=== PATIENT | female | born 1955 | race Caucasian/White ===

== ENCOUNTER → 2020-06-07 | Outpatient (CLI) | payer OTHER ==
[2015-08-15 15:03] VITALS: BP 142/88
--- NOTE | 2020-06-07 16:01 | KCIC ---
MRI Lumbar Spine without contrast History: Left lumbar radiculopathy, left foot drop Technique: Multiplanar, multi sequential noncontrast MR imaging was performed of the lumbar spine. Comparison: None Findings: There is motion degradation. Lumbar vertebral body stature is maintained. AP alignment is within normal limits. Conus terminates near the superior aspect of L2. There is a focus of heterogeneous signal change of the left anterior L5 vertebral body, somewhat hyperintense on the T2 and STIR sequences, measuring about 2.8 cm CC by 1.7 cm AP by about 1.9 cm transverse. This is of somewhat mixed signal characteristics on the T1 sequence, some degree of T1 hypointense signal. There is very mild L4-5 degenerative disc disease, mild disc desiccation at the levels. There is anterior annular tear L4-5. T12-L1: Spinal canal and neural foramina are adequate. L1-L2: Neural foramina and spinal canal are adequate. L2-L3: There is negligible bulge, minimal indentation upon the ventral thecal sac without significant spinal stenosis. Neural foramina are overall adequate. L3-L4: There is mild facet degenerative change. Spinal canal and neural foramina are adequate. L4-L5: There is minimal bulge. There is mild buckling of the ligamentum flavum. There is mild narrowing of the far lateral recesses bilaterally. There is very mild inferior neural foramina compromise bilaterally by minimal disc osteophyte complex. L5-S1: There is mild facet hypertrophic change. There is very mild narrowing at the far left lateral lateral recess from posteriorly by facet. There is minimal narrowing of the left neural foramen by disc osteophyte complex, right neural foramen adequate. Impression: 1. There is mild narrowing of the far lateral recesses bilaterally at L4-5 and to lesser degree on the left at L5-S1 as described. There is mild neural foramina compromise on the left at L5-S1 and bilaterally at L4-5. 2. There is a focus of nonspecific marrow signal abnormality of the anterior left L5 vertebral body. While an atypical hemangioma would be a consideration, more aggressive marrow replacing lesion is possible. Correlation with any history or suspicion for malignancy is advised. Bone scan could be beneficial to assess for radiotracer activity and to assess for other lesions. If this is not performed, short-term follow-up images and 3 months could be beneficial to assess size stability. Electronically signed by: Rich Cabral MD (06/07/2020 3:58 PM) [id number]
== END | disposition home or self-care (01) ==
LOC: KCIC MRI 13:30
PROVIDERS: ATTEND Nurse Practitioner
DX: M51.16 Intervertebral disc disorders with radiculopathy, lumbar region (principal); M25.78 Osteophyte, vertebrae; M48.07 Spinal stenosis, lumbosacral region; M21.372 Foot drop, left foot
CPT/HCPCS: 72148

== ENCOUNTER → 2020-06-17 | Outpatient (CLI) | payer OTHER ==
[2015-08-15 15:03] VITALS: BP 142/88
--- NOTE | 2020-06-17 17:43 | RAD ---
Bone scan 06/17/2020 CLINICAL HISTORY: Area of abnormal signal intensity is seen within the anterior left L5 vertebral body on recent MRI. A bone scan was recommended for further evaluation. History of left leg numbness. TECHNIQUE: 3 hours after the intravenous administration of 25 mCi of Technetium 99m MDP, whole body imaging of the axial and appendicular skeleton was performed using the gamma camera. FINDINGS: Comparison is made to the patient's MRI of the lumbar spine dated 06/07/2020. Areas of increased activity are seen within the lower cervical spine, both shoulders, both knees and both feet and ankles consistent with areas of degenerative change. Increased activity is seen involving the region of the left fourth rib which may represent a healing rib fracture. No area of abnormal activity is seen to suggest evidence of metastatic disease. No abnormal activity is seen in the region of the L5 vertebrae. The signal abnormality seen on the patient's recent MRI is felt to most likely represent a benign finding such as a hemangioma. IMPRESSION: No area of abnormal activity is seen involving the L5 vertebrae as discussed above. Electronically signed by: Hira Joyner MD (06/17/2020 5:40 PM) [id number]
== END | disposition home or self-care (01) ==
LOC: NM 10:07
PROVIDERS: ATTEND Family Medicine
DX: M89.9 Disorder of bone, unspecified (principal)
CPT/HCPCS: 78306; A9503